=== PATIENT | male | born 1985 | race Caucasian/White ===

== ENCOUNTER → 2018-07-01 | Outpatient (CLI) | payer OTHER ==
[~2018-07-01] MED LIST: CONRAY-43 43% 50ML VIAL (Q9960) As Ordered ONE; PROHANCE 279.3MG/ML 5ML VIAL (A9576) As Ordered ONE
--- NOTE | 2018-07-02 11:16 | REP ---
Procedure: Left shoulder arthrogram The procedure was performed under the direct supervision of Dr. Quintana. History: Left shoulder pain The benefits and risks including but not limited to pain, infection, bleeding and anaphylaxis were explained to the patient and informed consent was obtained. Technique: The left glenohumeral joint space was localized using fluoroscopic guidance. The skin was prepped and draped in a sterile fashion. 1% lidocaine was used as a local anesthetic. Using fluoroscopic guidance a 22 gauge spinal needle was inserted and advanced into the joint. 0.5 ml of Conray 43 was injected to verify placement. 11 ml of a solution containing 20 ml of sterile saline and 0.15 ml of ProHance was injected into the joint. The needle was removed and the patient was taken to MRI for postprocedural imaging. The the patient tolerated the procedure well and there were no immediate complications. Less than 6 seconds of fluoro time was utilized for this procedure. Reviewed by DEMI Kumar 07/01/2018 04:46 P Electronically Signed by Kota Quintana MD 07/02/2018 11:07 A
--- NOTE | 2018-07-05 13:59 | REP ---
MR ARTHROGRAM LEFT SHOULDER: TECHNIQUE: Axial T2 fat sat, gradient echo, sagittal oblique T2 fat sat, coronal oblique T1, T2 fat sat. There is increased signal on T2-weighted images in the bursal surface of the supraspinatus tendon having the appearance of a partial bursal surface tear of that tendon. This does not appear to extend through the entire thickness of the tendon. The other rotator cuff tendons appear intact. There are mild hypertrophic degenerative changes of the acromioclavicular joint with mild subacromial spurring and downward sloping of the acromion. The acromion is type 2. Ganglion cyst is seen superior to the acromioclavicular joint measuring 8 mm in diameter. Another is seen just above the distal end of the clavicle 7 mm in diameter. Small amount of fluid is seen in the acromioclavicular joint and also in the subacromial space. There has been prior biceps tenodesis. There is no Hill-Sachs deformity. Deltoid muscle is unremarkable. There is a linear signal extending through the superior labrum, likely representing residual or recurrent slap tear. Two tiny subchondral cysts are seen in the humeral head. There is no bone marrow edema or occult fracture. Impression: Partial thickness bursal surface tear supraspinatus tendon. Hypertrophic degenerative changes acromioclavicular joint with downward sloping of the acromion, which is type 2. There are two sub centimeter ganglion cysts above the distal clavicle and AC joint. Prior biceps tenodesis. Residual or recurrent slap tear. Mild fluid in the subacromial and subdeltoid bursae. Electronically Signed by Kota Quintana MD 07/05/2018 05:41 P
== END ==
LOC: M RADPRO 06:36
PROVIDERS: ATTEND Physician Assistant
DX: M25.512 Pain in left shoulder (principal); M66.821 Spontaneous rupture of other tendons, right upper arm; M67.412 Ganglion, left shoulder; S46.011A Strain of muscle(s) and tendon(s) of the rotator cuff of right shoulder, initial encounter; Y92.89 Other specified places as the place of occurrence of the external cause; Y93.89 Activity, other specified; X58.XXXA Exposure to other specified factors, initial encounter; Y99.8 Other external cause status
CPT/HCPCS: 23350; 73223; 77002; A9576; Q9960